=== PATIENT | female | born 1970 | race Caucasian/White ===

== ENCOUNTER 2019-11-13 12:48 | Emergency (ER) | payer BC ==
[2019-11-13 12:56] VITALS: BP 136/75; PULSE 89; TEMP 98.4; BMI 28.9
--- NOTE | 2019-11-13 13:05 | PDOC ---
History of Present Illness - General Chief Complaint: Pain, Acute Stated Complaint: ABD DISCOMFORT Time Seen by Provider: 11/13/19 12:49 History Source: Patient Exam Limitations: No Limitations - History of Present Illness Initial Comments: 11/13/19 13:54 49y F with PMH of diverticulitis s/p sigmoid resection 2011, gastric sleeve 2013, appendectomy 2011, hysterectomy 2013, presenting to the ER for diffuse abdominal discomfort x24h. Pt states the discomfort started yesterday, feels like gas. She states she also noticed distension. Pain radiates to the R flank. She was on a type of protein diet and had similar pain and distension last week which resolved the next day. She did not eat the same foods yesterday. Last BM this AM was normal, no blood. Denies n/v/d, fever, chest pain, sob, cough, dysuria, hematuria, vaginal discharge. PMH: none PSH; see hpi Meds: Klonopin Allergies: PCN, levaquin Past History - Medical History Allergies/Adverse Reactions: Allergies Allergy/AdvReac Type Severity Reaction Status Date / Time levofloxacin [From Levaquin] Allergy Intermediate Hives Verified 11/13/19 12:49 Penicillins Allergy Verified 11/13/19 12:49 Home Medications: Ambulatory Orders clonazePAM [Klonopin -] 0.25 mg PO DAILY 11/13/19 Anemia: No Asthma: No Cancer: No Cardiac Disorders: No CVA: No COPD: No CHF: No Dementia: No Diabetes: No GI Disorders: Yes (DIVERTICULAR DISEASE) Disorders: No HTN: No Hypercholesterolemia: No Liver Disease: No Seizures: No Thyroid Disease: No - Surgical History Abdominal Surgery: Yes (LAPROSCOPIC SIGMOID RESECTION 07/12) Appendectomy: Yes (07/12) Cardiac Surgery: No Cholecystectomy: No Lung Surgery: No Neurologic Surgery: No - Psycho-Social/Smoking History Smoking History: Current every day smoker Have you smoked in the past 12 months: Yes Number of Cigarettes Smoked Daily: 10 If you are a former smoker, when did you quit?: 2010 Information on smoking cessation initiated: Yes 'Breaking Loose' booklet given: 07/24/14 - Substance Abuse Hx (Audit-C & DAST Scrn) How often the patient has a drink containing alcohol: Monthly or less Number of drinks the patient has on a typical day: 1 or 2 How often the patient has six or more drinks on one occasion: Never Score: In Men: 4 or > Positive; In Women: 3 or > Positive: 1 Screen Result (Pos requires Nsg. Audit-10AR): Negative In the last yr the pt used illegal drug/Rx for NonMed reason: No Score: Yes response is considered Positive: 0 Screen Result (Positive result requires Nsg. DAST-10): Negative Review of Systems - Review of Systems Constitutional: No: Symptoms Reported HEENTM: No: Symptoms Reported Respiratory: No: Symptoms reported Cardiac (ROS): No: Symptoms Reported ABD/GI: Yes: See HPI : No: Symptoms Reported Musculoskeletal: No: Symptoms Reported Integumentary: No: Symptoms Reported Neurological: No: Symptoms reported *Physical Exam - Vital Signs Last Vital Signs Temp Pulse Resp BP Pulse Ox 98.4 F 89 16 136/75 100 11/13/19 12:49 11/13/19 12:49 11/13/19 12:49 11/13/19 12:49 11/13/19 12:49 - Physical Exam General Appearance: Yes: Nourished, Appropriately Dressed. No: Apparent Distress HEENT: positive: EOMI, SANDRA. negative: Scleral Icterus (R), Scleral Icterus (L) Neck: positive: Trachea midline, Supple Respiratory/Chest: positive: Lungs Clear, Normal Breath Sounds. negative: Respiratory Distress, Crackles, Rales, Rhonchi, Stridor, Wheezing Cardiovascular: positive: Regular Rhythm, Regular Rate, S1, S2. negative: Edema, JVD, Murmur Vascular Pulses: Dorsalis-Pedis (R): 2+, Doralis-Pedis (L): 2+ Gastrointestinal/Abdominal: positive: Normal Bowel Sounds, Soft, Tenderness (LUQ). negative: Protuberent, Distended, Guarding, Rebound, Mass Musculoskeletal: negative: CVA Tenderness Extremity: positive: Normal Capillary Refill. negative: Swelling, Calf Tenderness, Erythema Integumentary: positive: Normal Color, Dry, Warm. 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 vitals wnl pe significant for LUQ tenderness. no rebound/guarding, no distension or fluid wave. no CVA tenderness. ddx includes cholecystitis, sbo, pancreatitis, kidney stone, pud. exam not suspicious for sbo, however will obtain xray. -cbc, cmp, lipase, lactic, ua, ucx -fluids, tylenol, pepcid. -abdominal xray. labs show leukocytosis of 13. pt is otherwise afebrile and no distension and not peritoneal. labs otherwise wnl. ua negative for infection. XR does not show obvious signs of obstruction. pt resting comfortably in bed, reports symptomatic improvement. shared decision making, will defer CT. abdominal xray results do not show obvoius signs of obstruction. pt states she feels better. still has mild luq tenderness but reports improvement. tolerating po. 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 advised to return for worsening pain, not passing gas/no bm, vomiting. Discharge - Discharge Information Problems reviewed: Yes Clinical Impression/Diagnosis: Abdominal pain Qualifiers: Abdominal location: generalized Qualified Code(s): R10.84 - Generalized abdominal pain Condition: Good Disposition: HOME - Admission No - Follow up/Referral - Patient Discharge Instructions Patient Printed Discharge Instructions: DI for Abdominal Pain-Adult Additional Instructions: You were seen in the ER today for abdominal pain. The blood tests show a slightly elevated WBC count but otherwise normal. The xrays did not show obvious signs of obstruction. I do not know the exact cause of your symptoms but it does not appear to be large SBO or cholecystitis or pancreatitis. Resume your normal diet. You can try Maalox as well. Please return to the ER if you are not having bowel movements or are not passing gas, are vomiting, you have fever, pain worsens or if any new or concerning symptom develops. Thank you - Post Discharge Activity Work/Back to School Note: Back to Work
--- NOTE | 2019-11-13 13:05 | PDOC ---
Attending Attestation - Resident Resident Name: AraseliFrancesca - ED Attending Attestation I have performed the following: I have examined & evaluated the patient, The case was reviewed & discussed with the resident, I agree w/resident's findings & plan, Exceptions are as noted - HPI HPI: 11/13/19 13:00 49y F hx of diverticultis sp sigmoidectomy, sp hysterectomy/appendectomy, presents with about 24 hours of diffuse abdominal discomort and distension. pt notse pain is waxing and waning, doesnt really go away, constant pressur elike discomfort and occasional sharp pain lasting a minute or two. denies any nausea or vomiting, fc. does endorse having a BM this morning that was normal and passing gas. denies any cp, sob, cough, dysuria, frquency. - Physicial Exam PE: GENERAL: The patient is awake, alert, and fully oriented, Nontoxic - in no acute distress. HEAD: Normocephalic, atraumatic. EYES: extraocular movements intact, sclera anicteric, conjunctiva clear. ENT: Normal voice, Moist mucous membranes. NECK: Normal range of motion, supple LUNGS: Breath sounds equal, clear to auscultation bilaterally. No wheezes, no rhonchi, no rales. HEART: Regular rate and rhythm, normal S1 and S2 without murmur, rub or gallop. ABDOMEN: Soft, mild LUQ tenderness, No guarding, no rebound. No CVA tenderness EXTREMITIES: Normal range of motion, no edema. NEUROLOGICAL: No facial assymetry, Normal speech, PSYCH: Normal mood, normal affect. SKIN: Warm, Dry, normal turgor, - Medical Decision Making ddx includes possible gastritis, bloating, obstruction, panceratitis 11/13/19 15:41 pts labs revieed pt feeling improved, no more abd discomfort. reassessment of abd is soft nontender pt tolerating oral intake here will dc with supportive care pmd fu return precautions were discussed if symptoms return Discharge - Discharge Information Problems reviewed: Yes Clinical Impression/Diagnosis: Abdominal pain Qualifiers: Abdominal location: generalized Qualified Code(s): R10.84 - Generalized abdominal pain Condition: Good Disposition: HOME - Admission No - Follow up/Referral - Patient Discharge Instructions Patient Printed Discharge Instructions: DI for Abdominal Pain-Adult Additional Instructions: You were seen in the ER today for abdominal pain. The blood tests show a slightly elevated WBC count but otherwise normal. The xrays did not show obvious signs of obstruction. I do not know the exact cause of your symptoms but it does not appear to be large SBO or cholecystitis or pancreatitis. Resume your normal diet. You can try Maalox as well. Please return to the ER if you are not having bowel movements or are not passing gas, are vomiting, you have fever, pain worsens or if any new or concerning symptom develops. Thank you - Post Discharge Activity Work/Back to School Note: Back to Work
[2019-11-13] MEDS ORDERED: ACETAMINOPHEN 1000 MG/100 ML VIAL (NON FORMULARY) IVPB ONE (13:06)
[2019-11-13] MEDS ORDERED: FAMOTIDINE 20 MG/50 ML IVPB 20 MG/50 ML MG IVPB ONE ×2 (13:06→13:09)
[2019-11-13] MEDS ORDERED: ACETAMINOPHEN INJECTION 100 ML IVPB ONE (13:09)
[2019-11-13 13:45] LABS: EPITHELIAL CELLS MODERATE /hpf
[2019-11-13 13:46] LABS: BASO % 2.2 % (0-2.0); EOS % 2.5 % (0-4.5); HEMATOCRIT 40.7 % (32.4-45.2); HEMOGLOBIN 13.7 GM/dl (10.7-15.3); MCH 28.4 pg (25.7-33.7); MCHC 33.7 g/dl (32.0-36.0); MEAN CELL VOLUME 84.3 fl (80-96); MEAN PLT VOLUME 7.8 fl (7.5-11.1); NEUT % 78.3 % (42.8-82.8); PLATELET COUNT 424 K/MM3 (134-434); RBC 4.83 M/mm3 (3.60-5.2); WHITE BLOOD COUNT 13.3 K/mm3 (4.0-10.8)
[2019-11-13 14:06] LABS: ALBUMIN 3.6 g/dl (3.4-5.0); BILIRUBIN,TOTAL 0.3 mg/dl (0.2-1); CALCIUM 8.7 mg/dl (8.5-10); CREATININE 0.6 mg/dl (0.55-1.3); POTASSIUM 3.9 mmol/L (3.5-5.1); TOT PROT 6.6 g/dl (6.4-8.2)
[2019-11-13] MEDS ORDERED: SODIUM CHLORIDE 1,000 ML IV STA (14:28)
== END 2019-11-13 15:56 | disposition home or self-care (01) ==
LOC: FER 12:48
PROC: 3E0333Z Introduction of Anti-inflammatory into Peripheral Vein, Percutaneous Approach (ICD-10-PCS; principal; 2019-11-13)
PROC: 3E033GC Introduction of Other Therapeutic Substance into Peripheral Vein, Percutaneous Approach (ICD-10-PCS; 2019-11-13)
PROC: 3E0337Z Introduction of Electrolytic and Water Balance Substance into Peripheral Vein, Percutaneous Approach (ICD-10-PCS; 2019-11-13)
DX: R10.84 Generalized abdominal pain (principal)
CPT/HCPCS: 36415; 74019-TC-FY; 80053; 81003; 81015; 83605; 83690; 85025; 96361; 96374; 96375; 99284-25; J0131

== ENCOUNTER 2022-02-22 11:13 | Emergency (ER) | payer BC ==
[2022-02-22 11:48] VITALS: BP 120/72; PULSE 82; RESP 18; TEMP 98.8; BMI 24.6
[2022-02-22 12:01] LABS: HEMATOCRIT 40.2 % (32.4-45.2); HEMOGLOBIN 14.1 G/dL (10.7-15.3); MCH 30.6 pg (25.7-33.7); MEAN CELL VOLUME 87.4 fl (80-96); MEAN PLT VOLUME 7.2 fl (7.5-11.1); PLATELET COUNT 404.5 10^3/uL (134-434); RDW 13.8 % (11.6-15.6); WHITE BLOOD COUNT 11.2 10^3/uL (4.0-10.8)
[2022-02-22 12:25] LABS: HCG,QUALITATIVE URINE Negative
[2022-02-22 12:42] LABS: PLATELET ESTIMATE ADEQUATE
== END 2022-02-22 13:37 | disposition home or self-care (01) ==
LOC: FER 11:13
DX: K57.92 Diverticulitis of intestine, part unspecified, without perforation or abscess without bleeding (principal)
CPT/HCPCS: 36415; 81003; 84703; 85027; 99283-25